=== PATIENT | female | born 1985 | race Asian ===

== ENCOUNTER 2017-07-21 17:40 | Inpatient (IN) | payer SELFPAY ==
[~2017-07-21] VITALS: Ht 162.6 cm; Wt 90.7 kg
[2017-07-21] MEDS ORDERED: PREN-546 PO (18:13)
[2017-07-21] MEDS ORDERED: NALBUPHINE HYDROCHLORIDE 10 MG/ML VIAL IVP PRN (18:40)
[2017-07-21] MEDS ORDERED: OXYTOCIN 20 UNITS in LACTATED RINGERS 1,000 ML IV SCH (18:40)
[2017-07-21] MEDS ORDERED: AMPICILLIN 2,000 MG in NACL 0.9% MINI-BAG PLUS 100 ML IV SCH (18:40)
[2017-07-21] MEDS ORDERED: CARBOPROST 250 MCG/ML AMP IM PRN (18:40)
[2017-07-21] MEDS ORDERED: METHYLERGONOVINE 0.2 MG/ML AMP IM PRN (18:40)
[2017-07-21] MEDS ORDERED: PROMETHAZINE 25 MG/ML VIAL IVP PRN (18:40)
[2017-07-21] MEDS ORDERED: OXYTOCIN 10 UNITS/ML VIAL IM SCH (18:40)
[2017-07-21] MEDS ORDERED: AMPICILLIN 2,000 MG VIAL ONE (18:55)
[2017-07-21 19:31] VITALS: BP 129/84
[2017-07-21 19:32] LABS: BASOPHILS # (AUTO) 0.1 K/uL (0.00-0.22); BASOPHILS % (AUTO) 0.9 % (0.0-2.0); EOSINOPHILS # (AUTO) 0.1 K/uL (0-0.4); EOSINOPHILS % (AUTO) 0.7 % (0.0-4.0); HEMATOCRIT 37.3 % (36-48); HEMOGLOBIN 12.6 g/dL (12.0-16.0); LYMPHOCYTES # (AUTO) 1.9 K/uL (2.5-16.5); LYMPHOCYTES % (AUTO) 19.9 % (20.5-51.1); MEAN CORPUSCULAR HEMOGLOBIN 31 pg (27-31); MEAN CORPUSCULAR HGB CONC 34 g/dL (33-37); MEAN CORPUSCULAR VOLUME 91 fL (80-94); MONOCYTES # (AUTO) 0.4 K/uL (0.8-1.0); MONOCYTES % (AUTO) 4.4 % (1.7-9.3); NEUTROPHILS % (AUTO) 74.1 % (42.2-75.2); PLATELET COUNT (AUTO) 205 K/uL (140-450); RED BLOOD CELL COUNT(AUTO) 4.11 MIL/uL (4.20-5.40); RED CELL DISTRIBUTION WIDTH 14.6 % (11.6-13.7); WHITE BLOOD COUNT (AUTO) 9.5 K/uL (4.8-10.8)
[2017-07-21 19:40] LABS: APPEARANCE,URINE CLEAR (CLEAR); BILIRUBIN,URINE NEGATIVE (NEGATIVE); BLOOD, URINE TRACE-I (NEGATIVE); COLOR,URINE YELLOW (YELLOW); LEUKOCYTE ESTERASE ,URINE NEGATIVE (NEGATIVE); NITRITE, URINE NEGATIVE (NEGATIVE); PH,URINE 5.5 (5.0-9.0); UGLUCOSE NEGATIVE (NEGATIVE)
[2017-07-21] MEDS: LACTATED RINGERS 1,000 ML IV SCH ×2 (19:42→23:53)
[2017-07-21 19:43] LABS: ANION GAP 16.2 (8-16); CARBON DIOXIDE 21.5 mmol/L (21-32); CREATININE 0.6 mg/dL (0.6-1.3); POTASSIUM 3.7 mmol/L (3.5-5.1)
[2017-07-21 19:49] LABS: ALBUMIN 2.3 g/dL (3.4-5.0); TOTAL BILIRUBIN 0.2 mg/dL (0.0-1.0)
[2017-07-21] MEDS ORDERED: INFLUENZA VIRUS VACCINE QUAD 0.5 ML SYR IMVAC SCH (22:00)
[2017-07-21] MEDS ORDERED: AMPICILLIN 1,000 MG VIAL ONE (23:26)
[2017-07-21] MEDS: AMPICILLIN 1,000 MG in NACL 0.9% MINI-BAG PLUS 50 ML IV SCH (23:34)
[2017-07-22] MEDS ORDERED: BUPIVACAINE 0.125%/NS PREMIX 250 ML ONE (00:50)
[2017-07-22] MEDS: LACTATED RINGERS 1,000 ML IV SCH ×2 (00:57→10:01)
[2017-07-22] MEDS ORDERED: BUPIVACAINE 0.125%/NS PREMIX 250 ML EPI SCH (01:10)
[2017-07-22] MEDS ORDERED: AMPICILLIN 1,000 MG VIAL ONE ×2 (04:08→08:13)
[2017-07-22] MEDS: AMPICILLIN 1,000 MG in NACL 0.9% MINI-BAG PLUS 50 ML IV SCH ×2 (04:08→08:19)
--- NOTE | 2017-07-22 06:31 | NUR ---
PATIENT HAS BEEN SCREENED AND CATEGORIZED LOW NUTRITION RISK. PATIENT WILL BE SEEN WITHIN 7 DAYS OF ADMISSION. 07/27/17 NAY EDMONDS MS, RDN
[2017-07-22] MEDS ORDERED: OXYTOCIN 10 UNITS/ML VIAL ONE (07:21)
[2017-07-22] MEDS ORDERED: MEASLES, MUMPS, AND RUBELLA 1 VIAL SQVAC PRN (11:40)
[2017-07-22] MEDS ORDERED: oxyCODONE/APAP 5/325 MG 1 TAB TAB PO PRN (11:40)
[2017-07-22] MEDS ORDERED: IBUPROFEN 800 MG TAB PO PRN (11:40)
[2017-07-22] MEDS ORDERED: TEMAZEPAM 15 MG CAP PO PRN (11:40)
[2017-07-22] MEDS ORDERED: BENZOCAINE/MENTHOL 20%-0.5% 60 GM CAN TP PRN (11:40)
[2017-07-22] MEDS ORDERED: HYDROcodone/APAP 5/325 MG 1 TAB TAB PO PRN (11:40)
[2017-07-22] MEDS ORDERED: OXYTOCIN 10 UNITS/ML VIAL IM PRN (11:40)
[2017-07-22] MEDS ORDERED: METHYLERGONOVINE 0.2 MG/ML AMP IM PRN (11:40)
[2017-07-22 13:46] LABS: RAPID PLASMA REAGIN NON-REACTIVE (Non Reactiv)
[2017-07-22] MEDS ORDERED: DOCUSATE SOD/SENNA 50/8.6 MG 1 TAB PO SCH (21:00)
[2017-07-23 06:33] LABS: HEMATOCRIT 32.2 % (36-48); HEMOGLOBIN 10.8 g/dL (12.0-16.0)
== END 2017-07-23 15:15 | disposition home or self-care (01) | DRG 775 ==
LOC: MLD 17:40 → OBSVTOIN 18:37 → MFCC 07-22 17:10
PROVIDERS: ADMIT Obstetrics & Gynecology; ATTEND Obstetrics & Gynecology
PROC: 0KQM0ZZ Repair Perineum Muscle, Open Approach (ICD-10-PCS; principal; 2017-07-22)
PROC: 10E0XZZ Delivery of Products of Conception, External Approach (ICD-10-PCS; 2017-07-22)
PROC: 3E0R3BZ Introduction of Anesthetic Agent into Spinal Canal, Percutaneous Approach (ICD-10-PCS; 2017-07-22)
PROC: 00HU33Z Insertion of Infusion Device into Spinal Canal, Percutaneous Approach (ICD-10-PCS; 2017-07-22)
PROC: 3E0234Z Introduction of Serum, Toxoid and Vaccine into Muscle, Percutaneous Approach (ICD-10-PCS; 2017-07-22)
DX: O69.1XX0 Labor and delivery complicated by cord around neck, with compression, not applicable or unspecified (principal); O70.1 Second degree perineal laceration during delivery; Z37.0 Single live birth; Z3A.39 39 weeks gestation of pregnancy; Z23 Encounter for immunization
CPT/HCPCS: 36415; 51702; 59409; 80053; 81003; 85018; 85025; 86592; 86886; 86900; 86901; 90658; 90715; G0378; J0290; J2590; J3490; J7120